=== PATIENT | female | born 1945 | race Caucasian/White ===

== ENCOUNTER → 2020-01-10 | Day surgery (SDC) | payer MEDICARE ==
[2020-01-05 11:43] LABS: BASOPHILS # (AUTO) 0.1 (0.0-0.1); EOSINOPHILS # (AUTO) 0.2 (0.0-0.4); HEMATOCRIT 41.2 % (34.2-44.1); HEMOGLOBIN 13.5 g/dL (12.0-16.0); LYMPHOCYTES # (AUTO) 1.5 (1.0-3.2); LYMPHOCYTES % 19.5 % (18.0-39.1); MEAN CORPUSCULAR HEMOGLOBIN 29.9 pg (28-32); MEAN CORPUSCULAR HGB CONC 32.8 g/dL (31-35); MEAN CORPUSCULAR VOLUME 91.4 fL (81-99); MONOCYTES # (AUTO) 0.7 (0.2-0.8); MONOCYTES % 8.7 % (4.4-11.3); NEUTROPHILS # (AUTO) 5.3 (2.1-6.9); NEUTROPHILS % 68.5 % (38.7-80.0); PLATELET COUNT 248 x10e3/uL (140-360); RED BLOOD COUNT 4.51 x10e6/uL (3.6-5.1); RED CELL DISTRIBUTION WIDTH 12.6 % (11.7-14.4)
[2020-01-05 12:07] LABS: ALBUMIN 4.2 g/dL (3.5-5.0); ALBUMIN/GLOBULIN RATIO 1.3 (0.8-2.0); ANION GAP 12.4 mmol/L (8-16); CALCIUM 9.4 mg/dL (8.4-10.2); CREATININE, SERUM 1.44 mg/dL (0.57-1.11); POTASSIUM 4.4 mmol/L (3.5-5.1)
--- NOTE | 2020-01-09 19:30 | NUR ---
Pt contacted by phone for interview of scheduled procedure. Review of medical history and current medications. Procedural consent on day of arrival to be completed, pre-op orders, and twice bathing education completed. All questions clarified and or answered where appropriate. pt verbalizes understanding to include day of procedure expectations and practice social distancing. Pt aware to be using provided/ personal mask for COVID-19 mitigation. - cgf
[~2020-01-10] VITALS: Ht 154.9 cm; Wt 52.2 kg
[2020-01-10] VITALS (14 sets, daily range): BP systolic 107–155; BP diastolic 57–87
[~2020-01-10] MED LIST: ACTIVELLA 1 MG1 EACH PO; ALPRAZOLAM 0.5 MG TAB ONE; ASPIRIN81 MG PO; DIPHENHYDRAMINE HCL 25 MG CAP ONE; FENTANYL CITRATE/PF 100MCG/2 ML INJ ONE; HEPARIN SOD/SOD CHLORIDE 2,000 ML ONE; IOPAMIDOL 370 MG/ML 200 ML INFUS..BTL INJ ONE; LIDOCAINE HCL 2% LOCAL 20 ML VIAL ONE; MIDAZOLAM HCL 2 MG/2 ML VIAL ONE; SODIUM CHLORIDE 0.9% 1000ML 1,000 ML ONE; TRAMADOL HCL50 M1 PO; Z.0.TRAZODONE HCL100 PO; ZOLOFT50 MG PO; ZOLPIDEM TARTRAT5 MG PO
--- NOTE | 2020-01-10 11:21 | NUR ---
1121p Report recieved from Kelsey FU[facility] identiferx2 Alert oriented and appropriate, PERRLA, respirations even and unlabored to room air. Pulses x4 extremities equal and palpable . Cap fill brisk < 3 sec. RT groin old sheath site with staisis and dry dressing in place NO gross issues pain,pallor,pressure or dysrthmia. No s/s of swelling or discolor at site. VS trend reviewed and medications given. PPx4, Skin warm and dry integrity appears intact in general. IV left hand 100cchr, presents healthy w/o s/s of infiltration or complaint. Abdomen soft and supple. pt offered toileting, denies need to urinate or defecate. Resting with HOB elevated aprox 30o. Personal affects with patient. Pt verbalizes understanding of POC. 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 bed low and locked, side rails up x2 and call light at side. pt using personal mask for COVID-19 mitigation. Dc at 1600pm ds/rn
--- NOTE | 2020-01-10 11:32 | NUR ---
1132 successful sheath pull with Romeo RTR 15mn held and Ysabel RN at bedside.NO gross issues Pedal pulses intact bilateral. Tegaderm dressing in place. Down time till 1600pm. DC discharge paperwork completed. Denies c/o at this time. 1132a b/p 135/71 UT -68 R 18 100%RA No gross issues PPx4 present. No Bleeding NO hematoma. 1135a b/p 149/71 UT-62 R-18 100%RA No gross issues PPx4 present. No Bleeding NO hematoma. 1140a b/p 140/73 UT-66 R-22 100%RA No gross issues PPx4 present. No Bleeding No hematoma. 1145a b/p 160/70 UT-64 R-22 100%RA No gross issues PPx4 presnet. NO Bleeding NO hematoma. luisa/eliz
--- NOTE | 2020-01-10 11:37 | Operative Report ---
DATE OF PROCEDURE: 01/10/2020 SURGEON: Moses Rich MD INDICATIONS: Coronary artery disease, angina, abnormal stress test. PROCEDURES PERFORMED: 1. Left heart catheterization, selective coronary angiography. 2. Conscious sedation, 35 minutes. COMPLICATIONS: None. RECOMMENDATIONS: Medical therapy. DESCRIPTION OF PROCEDURE: Access was obtained in the right femoral artery. A 6-[place] sheath was placed. Coronary angiography demonstrated small coronary arteries with mild 20% to 30% luminal irregularities. No critical stenosis or occlusions were noted. No intervention deemed necessary. LV end-diastolic pressure of 5. No gradient across the aortic valve on pullback. Right groin sheath removed under manual pressure. The patient discharged home the same day. Moses Rich MD [facility]/MOD[facility] /[id number]
--- NOTE | 2020-01-10 16:00 | NUR ---
1600pm-------RT--Femoral------No Fix [facility] Dr Rich---- Pt meets discharge criteria. VS wnl, alert and oriented. Pt and Family Understands discharge instruction. Overall general assess w/o gross outliers. Skin warm, dry, and intact. Right groin dressing soft w/o s/s of hematoma. Pedal pulses unchanged. IV removed and appears distal tip is intact. Johnathon Rn verified iv remove and site no gross issues. Pt maintains mask on for COVID 19 precautions being taken by wheel chair to awaiting car. Transfers w/o gross distress with discharge paperwork in hand.ds/rn
== END | disposition home or self-care (01) ==
LOC: CATH LAB 09:41
PROVIDERS: ATTEND Internal Medicine Interventional Cardiology
DX: I25.118 Atherosclerotic heart disease of native coronary artery with other forms of angina pectoris (principal); Z88.6 Allergy status to analgesic agent; R94.39 Abnormal result of other cardiovascular function study; Z01.812 Encounter for preprocedural laboratory examination; Z20.828 Contact with and (suspected) exposure to other viral communicable diseases; Z79.82 Long term (current) use of aspirin
CPT/HCPCS: 36415; 76937; 80053; 85025; 93458; C1766; J2001; J2250; J3010; J7030; Q9967; U0002; 99152

== ENCOUNTER → 2022-12-23 | Outpatient (RCR) | payer MEDICARE ==
[~2022-12-23] MED LIST changes: -ALPRAZOLAM 0.5 MG TAB ONE; +BACLOFEN10 MG PO; +CLARITIN-D 241 EACH PO; -DIPHENHYDRAMINE HCL 25 MG CAP ONE; -FENTANYL CITRATE/PF 100MCG/2 ML INJ ONE; -HEPARIN SOD/SOD CHLORIDE 2,000 ML ONE; +HYDROCODON-ACE1 EA12 PO; -IOPAMIDOL 370 MG/ML 200 ML INFUS..BTL INJ ONE; -LIDOCAINE HCL 2% LOCAL 20 ML VIAL ONE; -MIDAZOLAM HCL 2 MG/2 ML VIAL ONE; +PANTOPRAZOLE SO40 MG PO; +PEPCID AC10 MG PO; -SODIUM CHLORIDE 0.9% 1000ML 1,000 ML ONE
== END ==
LOC: PT 11-25 09:21
PROVIDERS: ATTEND Neurological Surgery
DX: M51.16 Intervertebral disc disorders with radiculopathy, lumbar region (principal); M62.81 Muscle weakness (generalized)

== ENCOUNTER 2022-12-29 10:59 | Outpatient (RCR) | payer MEDICARE | END 2023-01-22 | LOC: PT 10:59 | PROVIDERS: ATTEND Neurological Surgery | DX: M51.16 Intervertebral disc disorders with radiculopathy, lumbar region (principal); M62.81 Muscle weakness (generalized) ==